=== PATIENT | male | born 1965 | race African-American/Black ===

== ENCOUNTER 2016-10-04 18:55 | Emergency (ER) | payer OTHER ==
--- NOTE | ~2016-10-04 | EKG ---
PATIENT: YOLANDE CORONA UNIT #: [id number] Ventricular Rate: 89 BPM Atrial Rate: 89 BPM P-R Interval: 144 ms QRS Duration: 98 ms Q-T Interval: 410 ms QTC Calculation(Bezet): 498 ms P [place]: 60 degrees Calculated R [place]: 51 degrees Calculated T [place]: 66 degrees Diagnosis Line: Normal sinus rhythm Diagnosis Line: Prolonged QT Diagnosis Line: Abnormal ECG Diagnosis Line: No previous ECGs available Diagnosis Line: Confirmed by DALLAS KANG MD ([id number]) on Diagnosis Line: 10/05/2016 10:46:55 PM INTERPRETING MD: DEVORA
[2016-10-04 19:05] LABS: BASOPHIL# 0.1 X10e3 (0-0.3); BASOPHIL% 0.9 % (0-2.5); EOSINOPHIL# 0.4 X10e3 (0-0.7); EOSINOPHIL% 5.6 % (0.0-7.0); HEMATOCRIT 40.6 % (38.0-50.0); HEMOGLOBIN 13.5 gm/dL (13.0-16.0); LYMPHOCYTE# 2.2 X10e3 (1.0-3.5); LYMPHOCYTE% 26.8 % (17.0-45.0); MEAN CELL VOLUME 89.8 FL (83-96); MEAN CORPUSCULAR HEMOGLOBIN 29.9 PG (28-34); MEAN CORPUSCULAR HGB CONC 33.3 g/dL (30-36); MEAN PLATELET VOLUME 7.6 FL (6.5-11.5); MONOCYTE# 0.8 X10e3 (0-1.0); MONOCYTE% 10.4 % (3.0-12.0); NEUTROPHIL# 4.5 X10e3 (1.5-7.1); NEUTROPHIL% 56.3 % (40-75); PLATELET COUNT 273 X10e3 (140-420); RED BLOOD COUNT 4.53 X10e (3.90-5.60); WHITE BLOOD COUNT 8.1 X10e3 (4.0-10.5)
[2016-10-04 19:23] LABS: DIFF IND NO
[2016-10-04 19:51] LABS: ACETAMINOPHEN <10 ug/mL; ALBUMIN SERUM 3.8 g/dL (3.5-5.0); ALCOHOL BLOOD <5 mg/dL (0); ALKALINE PHOSPHATASE 69 U/L (32-92); ALT (SGPT) 113 U/L (10-40); AST (SGOT) 104 U/L (10-42); BILIRUBIN, DIRECT 0.2 mg/dL (0.0-0.2); BILIRUBIN,INDIRECT 0.6 mg/dL (0.0-0.9); BILIRUBIN,TOTAL 0.8 mg/dL (0.2-2.0); BLOOD UREA NITROGEN 13 mg/dL (9-23); BUN/CREATININE RATIO 14.44; CALCIUM SERUM 8.7 mg/dL (8.4-10.2); CARBON DIOXIDE 27 mmol/L (22-31); CHLORIDE 107 mmol/L (100-111); CREATININE SERUM 0.9 mg/dL (0.6-1.4); GLOM FILT RATE Estimated ABOVE60 mL/min (>60); GLUCOSE FASTING 105 mg/dL (70-110); PROTEIN TOTAL SERUM 7.2 g/dL (6.0-8.3); SODIUM 137 mmol/L (135-145)
[2016-10-04 21:48] LABS: URINE SOURCE CLEAN CATCH
[2016-10-04 22:10] LABS: AMPHETAMINE NEG (NEG); BARBITURATES NEG (NEG); BENZODIAZEPINES NEG (NEG); COCAINE POS (NEG); MARIJUANA NEG (NEG); OPIATES NEG (NEG); TRICYCLIC ANTIDEPRESSANTS NEG (NEG); U METHADONE NEG (NEG)
[2016-10-04 22:16] LABS: URINE APPEARANCE CLEAR; URINE COLOR YELLOW; URINE LEUKOCYTE ESTERASE 1+ (NEG); URINE NITRATE NEG (NEG); URINE PH 5.5 (5-8); URINE SPECIFIC GRAVITY 1.021 (1.003-1.035)
[2016-10-04 22:17] LABS: URINE BILIRUBIN NEG (NEG); URINE BLOOD NEG (NEG); URINE GLUCOSE NEG (NEG); URINE KETONE NEG (NEG); URINE PROTEIN TRACE (NEG); URINE UROBILINOGEN 0.2 MG/DL (NEG)
[2016-10-04 22:25] LABS: U HYALINE CASTS AUWI 0-2 /[LPF]; URBCS1 AUWI 0-2 /[HPF] (0-2); URINE MUCUS PRESENT; URINE SQUAMOUS EPITHELIAL CELL FEW /[HPF]; UWBCS1 AUWI 0-2 (0-5)
== END 2016-10-05 00:01 ==
LOC: CED 18:55
PROVIDERS: Student in an Organized Health Care Education/Training Program
DX: T38.3X2A Poisoning by insulin and oral hypoglycemic [antidiabetic] drugs, intentional self-harm, initial encounter (principal); E11.9 Type 2 diabetes mellitus without complications; I10 Essential (primary) hypertension
CPT/HCPCS: 36415; 80048; 80076; 80307; 81003; 82947; 83605; 85025; 93005; 99285; G0480

== ENCOUNTER 2016-10-05 00:46 | Inpatient (IN) | payer OTHER ==
--- NOTE | ~2016-10-05 | DS ---
Unit #: [id number] #: [id number] Patient: YOLANDE CORONA [id number] [facility] [address] [place] [address] [id number] I MR#: [id number] NAME: YOLANDE CORONA [facility]OM[facility] Age: 50 Sex: M Admission Date: 10/05/2016 : 1965 Discharge Date: 10/06/2016 Attending Physician: Patel Troncoso M.D. Primary Care Physician: Generic Doctor Not In System DISCHARGE SUMMARY REASON FOR ADMISSION The patient is a 26-year-old male with a history of depression and cocaine abuse, admitted with suicidal ideation. HOSPITAL COURSE The patient was admitted to the [address] [place] [address] unit and placed on suicide precautions. He was begun on Wellbutrin XL 150 mg daily on 10/05/2016 and tolerated this medication well. Lisinopril 10 mg daily was added for hypertension as the patient was much brighter when seen by this physician on 10/06/2016. He was at that time denying suicidal ideation and requested discharge and it was so ordered. FINAL DIAGNOSES Major depressive disorder, recurrent, moderate; cocaine use disorder. Hypertension. DISPOSITION ON DISCHARGE The patient is discharged on the following medications: Zestril 10 mg daily for hypertension and Wellbutrin XL 150 mg daily for depression. DISCHARGE INSTRUCTIONS No dietary or physical restrictions were placed upon the patient at the time of discharge. FOLLOWUP Followup will take place through the auspices of the chemical dependency intensive outpatient program provided by this facility and community mental health resources. PROGNOSIS The patient's prognosis is considered good. Dictated by... Patel Troncoso M.D. CB/jami TD: 10/06/2016 23:56 JOB #: [id number] Unit #: [id number] #: [id number] Patient: YOLANDE CORONA DISCHARGE SUMMARY X Patel Troncoso MD X DISCHARGE SUMMARY
--- NOTE | ~2016-10-05 | CO ---
Unit #: [id number] #: [id number] Patient: YOLANDE CORONA [id number] [facility] [address] [place] [address] [id number] I MR#: [id number] NAME: YOLANDE CORONA ROOM: [facility] Age: 50 Sex: M Admission Date: 10/05/2016 : 1965 Attending Physician: Patel Troncoso M.D. Primary Care Physician: Tra Doctor Not In System Consultation Date: 10/05/2016 CONSULTATION REPORT Ordering provider is Dr. Troncoso. REASON FOR CONSULTATION Diabetes and hypertension. SUBJECTIVE The patient reports that he does have a history of both hypertension and diabetes and needs to be on medications for it; however, he has not picked up his medications in several years and has been noncompliant with them. He denies any symptoms related to his diseases. OBJECTIVE Examination was unremarkable. Blood pressures have ranged from 132/90 to 151/96. Blood sugars have been 107 and 113 randomly. ASSESSMENT Diabetes and hypertension. PLAN Plan is to get a copy of patient's home medications from prior. We will check his A1c and get blood sugars twice daily. Nursing was instructed to call . Dictated by... Bee Ellis A.P.R.N. for Roberto Waggoner/jami TD: 10/06/2016 18:47 JOB #: [id number] CONSULTATION REPORT X BEE ELLIS APRN CONSULTATION REPORT
--- NOTE | ~2016-10-05 | PA ---
Unit #: [id number] #: [id number] Patient: YOLANDE CORONA [id number] [facility] [address] [place] [address] [id number] I MR#: [id number] NAME: YOLANDE CORONA ROOM: [facility] Age: 50 Sex: M Admission Date: 10/05/2016 : 1965 Date of Assessment: 10/05/2016 Attending Physician: Patel Troncoso M.D. Admitting Physician: Patel Troncoso M.D. Primary Care Physician: Generic Doctor Not In System PSYCHIATRIC ASSESSMENT IDENTIFYING INFORMATION The patient is a 50-year-old male admitted to the [address] [place] [address] with increasing depression and abuse of crack cocaine. INFORMANT(S) The patient, reliability is good. CHIEF COMPLAINT None given. HISTORY OF PRESENT ILLNESS The patient is a 50-year-old male admitted to the [address] [place] [address] reporting worsening symptoms of depression as well as abuse of crack cocaine. The patient had attempted to hang himself using a belt but the belt had broken. The patient reports previous chemical dependence treatment including residential treatment in [place] which ended approximately four months ago. The patient reports that after approximately 90 days of sobriety he had began using crack cocaine once again. The patient's current stressors include his 's having asked for a divorce and asked him to leave the home. The patient also recently started a job at [employer]. The patient continues to report dysphoric mood, loss of appetite. He has never been on any antidepressant medication per his report. PAST PSYCHIATRIC HISTORY As above. PAST MEDICAL HISTORY Noncontributory. MEDICATIONS None. ALLERGIES None. FAMILY HISTORY The patient reports no family history of substance abuse or mood disorder. SOCIAL HISTORY The patient is employed at [employer]. He and his are currently estranged. The patient reports substance use noted previously. He completed one year of college at [employer] and is recently from [place] Unit #: [id number] #: [id number] Patient: YOLANDE CORONA [place]. MENTAL STATUS EXAMINATION At this time reveals the patient to be a well-developed, well-nourished male, appearing his stated age. He is in no apparent physical distress at the time of examination. He is awake, alert, and oriented in all spheres. His mood is dysphoric. His affect blunted. Speech is generally relevant and coherent. There are no gross deficits in memory or cognition noted. Intelligence is judged to be in the average range based on fund of knowledge. The patient is cooperative throughout the interview. He is currently endorsing positive suicidal ideation. He denies homicidal ideation. He denies any psychotic symptoms. His judgment and insight appear to be intact. ASSETS AND LIABILITIES ASSETS: Motivation for change. LIABILITIES: Lack of resources. DIAGNOSTIC IMPRESSION 1. Dysthymic disorder. 2. Cocaine use disorder PSYCHIATRIC PLAN/TREATMENT GOALS The patient remains hospitalized for safety and stabilization. A trial of Wellbutrin XL SR 150 mg daily will be initiated and the patient will continue participation within the therapeutic milieu. Suicidal precautions remain in place. ESTIMATED LENGTH OF STAY Three to five days with follow to take place in the intensive outpatient program provided by this facility. Dictated by... Patel Troncoso M.D. FRANCHESCA/rom TD: 10/06/2016 22:32 JOB #: [id number] PSYCHIATRIC ASSESSMENT X Patel Troncoso MD X PSYCHIATRIC ASSESSMENT
--- NOTE | ~2016-10-05 | HP ---
Unit #: [id number] #: [id number] Patient: YOLANDE CORONA [id number] [place] [address] [id number] I MR#: [id number] NAME: YOLANDE CORONA ROOM: [facility] Age: 50 Sex: M Admission Date: 10/05/2016 : 1965 Attending Physician: Patel Troncoso M.D. Admitting Physician: Patel Troncoso M.D. Primary Care Physician: Generic Doctor Not In System HISTORY AND PHYSICAL HISTORY OF PRESENT ILLNESS The patient is a 50-year-old male, admitted to [address] [place] [address] on 10/05/2016 for suicidal ideations and for cocaine abuse. PAST MEDICAL HISTORY 1. Drug abuse. 2. Obesity. 3. Hypertension. 4. Diabetes. 5. Sleep apnea. 6. History of DVT with PE. 7. Nicotine dependence. PAST SURGICAL HISTORY Left toe surgery. SOCIAL HISTORY The patient lives alone. He is employed. He smokes one pack of cigarettes every three days. He uses $300.00 worth of cocaine per week and marijuana daily. FAMILY MEDICAL HISTORY Noncontributory. ALLERGIES No known drug allergies. CURRENT MEDICATIONS Include: 1. Metformin 2. Enalapril 3. HCTZ 4. Metoclopramide 5. Duloxetine 6. Levemir However, he has not been on these medications for over a year. REVIEW OF SYSTEMS CONSTITUTIONAL: No fever or chills. HEENT: Denies any sore throat, ear pain or runny nose. CARDIOVASCULAR: Denies chest pain, irregular heart rhythm or palpitations. CHEST: Denies shortness of breath or cough. No hemoptysis. Unit #: [id number] #: [id number] Patient: YOLANDE CORONA GASTROINTESTINAL: Denies nausea, vomiting, diarrhea or chronic constipation. ENDOCRINE: Denies history of increased thirst or urination. No recent significant weight loss or gain. GENITOURINARY: Denies dysuria, frequency, or hematuria. SKIN: Denies any rashes. HEMATOLOGIC: Denies history of increased bleeding or bruising. MUSCULOSKELETAL: Denies any hot, swollen joints. No generalized muscle pain. NEUROLOGIC: Denies problems with vision or speech. No frequent, severe headaches. No numbness, tingling or weakness in any extremities. Denies loss of bladder or bowel control. PHYSICAL EXAMINATION GENERAL: Awake, alert, and oriented and in no acute distress. VITAL SIGNS: Temperature 98.1, heart rate 92, respirations 19, and blood pressure 132/90. HEIGHT: 6 feet 4 inches. WEIGHT: 308 pounds. SKIN: Warm and dry without rash or lesion. HEENT: Normocephalic. TMs not viewed. Oral and nasal passages clear. Conjunctivae clear. PERRLA. EOMs intact. NECK: Supple without lymphadenopathy or thyromegaly. HEART: Regular rate and rhythm without murmur. LUNGS: Clear. ABDOMEN: Soft, nontender. : Not done. EXTREMITIES: No evidence of cyanosis, clubbing or edema. Moves all without focal deficit. NEUROLOGICAL: Grossly within normal limits. Cranial Nerves: II: Visual zaldivar are intact. III, IV AND : Extraocular movements are intact. Pupils are equal, round and reactive to light. V: Facial sensation is grossly normal. VII: Facial movements and expression are normal. VIII: Auditory acuity grossly intact. IX, X: Uvula is midline. Phonation is normal. XI: Patient shrugs shoulders and turns head normally. XII: Tongue protrudes in the midline. Sensory and Motor Function: Sensory and motor sensation is grossly normal. Motor: moves all extremities well. Coordination: Gait is normal. Deep Tendon Reflexes: Intact. IMPRESSION 1. Psychiatric admission. 2. Cocaine abuse. 3. Nicotine dependence. 4. Obesity. 5. Hypertension. 6. Diabetes. 7. Sleep apnea. 8. History of DVT with PE. RECOMMENDATIONS Psychiatric, per psychiatrist. MEDICAL I see no contraindications to participating in facility's activities. MEDICAL PROGNOSIS Unit #: [id number] #: [id number] Patient: YOLANDE CORONA. MEDICAL CONDITION Stable. Dictated by... Deja Kennedy/ayse TD: 10/06/2016 08:14 JOB #: [id number] HISTORY AND PHYSICAL X RYAN RYAN APRN X HISTORY AND PHYSICAL
== END 2016-10-06 17:11 | disposition home or self-care (01) | DRG 881 ==
LOC: P2S 00:46
DX: F34.1 Dysthymic disorder (principal); R45.851 Suicidal ideations; E11.9 Type 2 diabetes mellitus without complications; F14.10 Cocaine abuse, uncomplicated; I10 Essential (primary) hypertension; E66.9 Obesity, unspecified; Z86.718 Personal history of other venous thrombosis and embolism; F17.200 Nicotine dependence, unspecified, uncomplicated; G47.30 Sleep apnea, unspecified; Z91.14 Patient's other noncompliance with medication regimen
CPT/HCPCS: 82947